=== PATIENT | female | born 1985 | race Caucasian/White ===

== ENCOUNTER 2017-01-03 20:02 | Emergency (ER) | payer OTHER ==
[~2017-01-03] VITALS: Ht 152.4 cm; Wt 88.9 kg
[~2017-01-03 20:02] MED LIST: TORADOL10 MG PO
[2017-01-03 20:29] LABS: HEMATOCRIT 39.7 % (36.0-46.0); MCH 28.4 PG (29.0-34.0); MCHC 34.8 G/DL (30.0-36.0); MCV 81.7 FL (83-99); MEAN PLAT.VOLUME 9.7 uM^3 (9.5-12.4); PLATELET COUNT 315 K/uL (156-360); RBC DIS.WIDTH-CV 13.5 % (11.8-14.6); RBC DIS.WIDTH-SD 39.2 % (39-53); RED BLOOD COUNT 4.86 M/uL (3.80-5.20); WHITE BLOOD COUNT 7.7 K/uL (4.1-10.2)
[2017-01-03 20:37] LABS: CHLORIDE 107 mEq/L (99-109); POTASSIUM 3.8 mEq/L (3.7-5.4); SODIUM 141 mEq/L (136-147)
[2017-01-03 20:38] LABS: GLUCOSE 116 mg/dL (70-99)
[2017-01-03 20:40] LABS: ANION GAP 10 MEQ/L (2-14)
[2017-01-03 20:42] LABS: GFR ESTIMATE (CALCULATED) > 59 mL/min/; SERUM ETHYL ALCOHOL < 10 mg/dL
[2017-01-03 20:43] LABS: UREA NITROGEN (BUN) 9 mg/dL (9-23)
[2017-01-03 20:50] LABS: QUANTITATIVE HCG < 4.0 MIU/ML
[2017-01-03 21:48] VITALS: BP 118/68
[2017-01-03 21:57] LABS: AMPHETAMINES QUANT VALUE 0 NG/ML; BARBITUATES QUANT VALUE 0 NG/ML; BENZODIAZEPINES QUANT VALUE 0 NG/ML; BENZODIAZEPINES, URINE SCREEN Negative (200 ng/mL); MARIJUANA QUANT VALUE 0 NG/ML; OPIATES QUANTITATIVE VALUE 0 NG/ML; PHENCYCLIDINE QUANT VALUE 0 NG/ML
== END 2017-01-03 21:52 | disposition home or self-care (01) ==
LOC: EME 20:02
PROVIDERS: Emergency Medicine
DX: F33.1 Major depressive disorder, recurrent, moderate (principal); F41.9 Anxiety disorder, unspecified
CPT/HCPCS: 80048; 80306 90; 84702; 85027; 90837; 99281; 99285; G0480